=== PATIENT | male | born 1955 | race Hispanic/Latino ===

== ENCOUNTER 2019-07-24 11:55 | Inpatient (IN) | payer MEDICARE, OTHER ==
[2019-07-24] MEDS ORDERED: Lorazepam 2 MG/ML VIAL ONE (13:03)
[2019-07-24 13:14] LABS: #Eosinphils 0.1 thou/uL (0.0-0.7); #Lymphocytes 1.1 thou/uL (1.20-3.40); #Monocytes 0.7 thou/uL (0.11-0.59); #Neutrophils 15.5 thou/uL (1.40-6.50); %Basophils 0.1 % (0.0-1.0); %Eosinophils 0.3 % (0.0-10.0); %Lymphocytes 6.5 % (21.0-51.0); %Monocytes 3.9 % (0.0-10.0); %Neutrophils 89.1 % (42.0-75.0); Hemoglobin 13.1 g/dL (14.0-18.0); Mean Corpuscular HGB CONC 33.2 g/dL (32.0-36.0); Mean Corpuscular Hemoglobin 31.2 pg (27.0-31.0); Mean Corpuscular Volume 94.1 fL (78.0-98.0); Mean Platelet Volume 9.2 fL (7.4-10.4); Platelet Count 271 thou/uL (130-400); RBC Distribution Width 11.8 % (11.5-14.5); Red Blood Cell (RBC) Count 4.19 mill/uL (4.70-6.10); White Blood Cell (WBC) Count 17.4 thou/uL (4.8-10.8)
[2019-07-24 13:25] LABS: ALT (SGPT) 12 U/L (8-55); AST (SGOT) 12 U/L (5-34); Albumin 4.2 g/dL (3.4-4.8); Alkaline Phosphatase 120 U/L (40-110); Anion Gap 16 mmol/L (10-20); BUN (Urea Nitrogen) 22 mg/dL (8.4-25.7); Bilirubin, Total 0.5 mg/dL (0.2-1.2); CK (CPK) 91 U/L (30-200); Calc. Creatinine Clearance 0 mL/min (70-130); Calcium 9.7 mg/dL (7.8-10.44); Carbon Dioxide 26 mmol/L (23-31); Chloride 103 mmol/L (98-107); Estimated GFR-MDRD 71; Globulin 2.9 g/dL (2.4-3.5); Glucose 109 mg/dL (80-115); Potassium 4.3 mmol/L (3.5-5.1); Protein, Total 7.1 g/dL (5.8-8.1); Sodium 141 mmol/L (136-145)
[2019-07-24] MEDS ORDERED: FOSPHENYTOIN SODIUM IVPB SCH ×2 (13:30→16:15)
[2019-07-24] MEDS ORDERED: SODIUM CHLORIDE 0.9% IVPB SCH ×2 (13:30→16:15)
[2019-07-24 13:50] LABS: Bilirubin Negative (Negative); Blood, Urine Negative (Negative); Clarity Clear (Clear); Glucose, Urine (Dipstick) Greater than 1000 mg/dL (Negative); Leukocyte Negative Leu/uL (Negative); Nitrite Negative (Negative); Protein, Urine (Dipstick) 20 mg/dL (Neg-Trace); Urobilinogen Normal mg/dL (Less than 2)
--- NOTE | 2019-07-24 13:51 | CT ---
CT BRAIN WITHOUT CONTRAST: Date: 07/24/2019 HISTORY: Altered mental status. Weakness. Recent CVA. FINDINGS: No previous exams available for comparison. There is encephalomalacia likely due to right MCA infarction. There are changes of cortical atrophy a nd chronic small vessel ischemic disease. No evidence of acute infarct, hemorrhage, midline shift, or abnormal extra-axial fluid collections are seen. The bony calvarium is intact. There is mild mucosal disease in the paranasal sinuses. IMPRESSION: No CT evidence of acute intracranial process. POS: [facility]
--- NOTE | 2019-07-24 14:26 | RAD ---
PORTABLE CHEST; Date: 07/24/2019 HISTORY: Altered mental status. FINDINGS: Heart size is borderline. There are atherosclerotic changes of the aorta. Lungs are clear of infiltra kirsten. IMPRESSION: No active intrathoracic disease. POS: [facility]
[2019-07-24] MEDS ORDERED: Sodium Chloride 0.9% 1,000 ML IV SCH (15:53)
[2019-07-24 16:23] LABS: Lactic Acid 2.1 mmol/L (0.5-2.2)
[2019-07-24] MEDS ORDERED: Guaifenesin DM 100-10/5 ML UDCUP PO PRN (17:14)
[2019-07-24] MEDS ORDERED: Acetaminophen 325 MG TAB PO PRN (17:14)
[2019-07-24] MEDS ORDERED: Ondansetron ODT 4 MG TAB PO PRN (17:14)
[2019-07-24] MEDS ORDERED: Senokot S 8.6-50 MG TAB PO PRN (17:14)
[2019-07-24] MEDS ORDERED: Ondansetron PF 4 MG/2 ML Vial IVP PRN (17:14)
[2019-07-24] MEDS ORDERED: hydrALAZINE 20 MG/ML VIAL SLOW IVP PRN (17:14)
[2019-07-24] MEDS ORDERED: Acetaminophen 650 MG Suppository PR PRN (17:14)
[2019-07-24] MEDS ORDERED: Labetalol HCl 100 MG/20 ML VIAL SLOW IVP PRN (17:14)
[2019-07-24] MEDS ORDERED: Dextrose 50% Abboject 50 ML SYRINGE SLOW IVP PRN (17:18)
[2019-07-24] MEDS ORDERED: Dextrose 5% in Water 1,000 ML IV PRN (17:18)
[2019-07-24] MEDS ORDERED: HumaLOG 300 UNITS/3 ML VIAL SC PRN ×2 (17:18)
[2019-07-24] MEDS: Sodium Chloride 0.9% 1,000 ML IV SCH (17:41)
--- NOTE | 2019-07-24 19:10 | HP ---
PRIMARY CARE PHYSICIAN: Dr. Alberto. CHIEF COMPLAINT: Altered mental status. HISTORY OF PRESENT ILLNESS: This is a 63-year-old white male with a known history of diabetes mellitus type 2, insulin dependent; hypertension; hyperlipidemia; and obstructive sleep apnea; who developed a stroke in February of 2019. He was given tPA and was transported to [facility] in [place]. He had a recurrent stroke during the transport. The patient has had a prolonged course since then he has had significant left upper and lower extremity weakness, muscle spasms, and bilateral left homonymous field defects, visual field defects, and he has had some dysarthria and dysphagia. The patient was doing decently at the residential facility and then in the custodial with a single sided walker until about a month ago when he got significantly weaker and more unstable. He has not really been able to get up and stand for the last week. Then, the family noticed that he has had a decreased appetite over the last week at all, is not really wanting to eat it. He did have diarrhea earlier in the week about 3 to 4 times that resolved, and nausea and vomiting once yesterday. There had been some virus going around causing this at the custodial, but he was talkative and interactive with his family. Of note, he did discuss with his the day prior to admission that he was getting tired of his decline and lack of progress and that he did not want to be resuscitated should he have a heart attack or other severe illness. The patient spoke to his on the phone a couple of times this morning, but then they were notified at the custodial that he was no longer responsive. No specific instances of seizure noted in the custodial, but he was not responding to them. They brought him into the emergency room. There, he was noted to be alert when he arrived in the ER, but although pleasantly confused. CT of the brain at that time showed old prior stroke, but no acute findings. The patient then had a witnessed generalized seizure in the emergency room. This was self-limited, did not require any medication, and he woke up after about 15 minutes. He was loaded with fosphenytoin and given some IV fluids and then admitted to the hospital. The patient has been very groggy and sleepy ever since. He can talk, but it is hard to understand, has very slurred speech. reports that he has never had a seizure before. All history taken from the as the patient is difficult to understand and he is very sleepy and difficult to keep awake or ask complex questions too. PAST MEDICAL HISTORY: 1. Diabetes mellitus type 2, insulin dependent with a diabetic neuropathy. 2. Hypertension. 3. Hyperlipidemia. 4. Obstructive sleep apnea, on CPAP at night, which he has not been keeping on since his stroke. 5. Previous stroke, see HPI. 6. Left-sided hemiplegia and hemiparesis. 7. 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 However, states that he has ever had a history of clots in his legs. 8. Gastroesophageal reflux disease. PAST PSYCHIATRIC HISTORY: Depression and anxiety ever since his stroke. PAST SURGICAL HISTORY: Bilateral cataract surgery. SOCIAL HISTORY: No history of tobacco, alcohol, or illicit drug use. He is . He has been living in [facility] since being june when he was discharged from residential facility in [place]. FAMILY HISTORY: The patient is adopted. There are no known family medical problems. ALLERGIES: ERYTHROMYCIN CAUSES STOMACH CRAMPING. CURRENT MEDICATIONS: 1. Acetaminophen extended release 650 mg every 4 hours as needed for pain. 2. Amlodipine 10 mg daily. 3. Aspirin 81 mg daily. 4. Atorvastatin 40 mg daily. 5. Baclofen 5 mg three times a day. 6. Baclofen 15 mg at night. 7. Dulcolax suppository daily as needed for constipation. 8. Ergocalciferol 1.25 mg once a week. 9. Famotidine 20 mg twice a day. 10. Fluticasone nasal spray in both nostrils one time a day. 11. Gabapentin 100 mg in the morning and at lunch, and 300 mg at night. 12. Aluminum magnesium hydroxide with simethicone, give 30 mL by mouth every 6 hours as needed for heartburn. 13. Levemir 15 units in the morning and 10 units at night. 14. Lisinopril 30 mg daily. 15. Loratadine 10 mg daily as needed for allergies. 16. Melatonin 3 mg by mouth at night. 17. Metoprolol succinate 25 mg daily. 18. Novolin 7 units subcu twice a day with lunch and dinner only. 19. Sertraline 50 mg daily. 20. Metformin/empagliflozin 2 tablets by mouth one time a day. 21. Tadalafil 5 mg daily. 22. Tramadol as needed for pain. REVIEW OF SYSTEMS: Unable to obtain full review of systems secondary to the patient's dysarthria and somnolence. Pertinent review of systems have been obtained from the family. See HPI for complete list of positive symptoms. As far as the family knows, he has not had any fevers and no urinary changes. No recent falls that they know of. He has said that food is taste bad over the last week. He is not hungry. PHYSICAL EXAMINATION: VITAL SIGNS: Blood pressure 147/74, pulse 96, respirations 17, O2 saturations 95% on room air, temperature 98.8. GENERAL: This is a well-developed, well-nourished white male, who is somnolence , snoring gently, in no acute distress. HEENT: The patient is unable to open his eyes very well, though he can open them with a lot of stimulation. His pupils are bilaterally reactive to light and are not deviated. He is not able to see off to the left side with either eye. Oropharynx clear without lesions, erythema, or exudate. NECK: Supple. No lymphadenopathy. No thyroid nodules or enlargement. HEART: Regular rate and rhythm. No murmurs, rubs, or gallops. LUNGS: Clear to auscultation bilaterally. No wheezes, crackles, or rhonchi. ABDOMEN: Soft, nontender to palpation. Normoactive bowel sounds. No hepatosplenomegaly or other masses. EXTREMITIES: No clubbing, cyanosis, or edema. SKIN: No rashes or lesions noted. NEUROLOGIC: The patient has hyperreflexia in the left upper and lower extremities. He has no movement of his left upper extremity to command, but does have some tightening and movement in reaction to stimulation. He is able to move the left lower extremity mildly to command as full use of the right side of his body. PSYCHIATRIC: The patient is somnolent, is able to be aroused for short period of time, but goes right back to sleep. He is oriented to his name, to his location at [facility]. He initially thought it might be June of 2019, but then remembered that the year had passed by, does not know the date. LABORATORY DATA: White blood cell count 17,000 with 89% neutrophils, hemoglobin 13.1, hematocrit 39.5, platelet count 271. Complete metabolic panel is notable only for an alkaline phosphatase of 120. Rest was normal. His troponin was negative x1. His lactic acid was initially elevated at 3.3, came down to 2.1 after fluids. Urinalysis showed greater than a 1000 glucose and ketones were positive, but no evidence of infection. IMAGING STUDIES: CT of the brain done in the emergency room did show encephalomalacia likely due to right MCA infarction, changes of cortical atrophy and chronic small-vessel ischemic changes, but no evidence of acute infarction, hemorrhage, midline shift or abnormal extra-axial fluid collection seen. Chest x-ray; I did review the chest x-ray done in the emergency room along with the radiologist's report, does show borderline size heart, but clear lung montanez. No evidence of acute cardiopulmonary disease. ASSESSMENT: 1. New onset seizure activity. This is likely due to his previous or perhaps some recurrent recent strokes. The patient was loaded with fosphenytoin in the emergency room. We will start him on Keppra. I have spoken with Dr. Low and he will see him tomorrow. 2. Previous strokes with recent significant decline in functional status, concern for recurrent strokes. We will get an MRI to evaluate. 3. We will also consider advancing the patient's antithrombotic therapy to Aggrenox or aspirin or Plavix if he does show evidence of recurrent strokes on the 81 mg of aspirin daily. 4. Hypertension. The patient's blood pressure is decently controlled right now , we will resume home antihypertensives. 5. Diabetes mellitus type 2, insulin dependent. We will resume the patient's home insulin and put him on a diabetic diet with supplements. 6. Dysarthria and worsening slurred speech, concern for worsening of his dysphagia as well. We will have him on aspiration precautions and will have speech therapy evaluate him along with the rest of the stroke team. 7. Gastrointestinal prophylaxis and gastroesophageal reflux disease. We will continue the patient's Pepcid twice a day. 8. Deep venous thrombosis prophylaxis. We will put the patient on Lovenox daily subcu. 9. Code status. I did discuss this with the patient and the patient's , who is his medical power of civil litigation attorney. He is a do not attempt resuscitation. His ' s name is Abby Doyle. Job ID: [id number] MUNA
[2019-07-24 20:37] VITALS: BMI 25.1
[2019-07-24] MEDS ORDERED: levETIRAcetam 500 MG TAB PO SCH (21:00)
[2019-07-24] MEDS: Famotidine/PF 20 mg/2ml Vial SLOW IVP SCH (22:35)
[2019-07-24] MEDS: Insulin Glargine 10 UNITS in Pre-Filled Syringe SC SCH (22:43)
[2019-07-24] MEDS: Gabapentin 300 MG CAP PO SCH (22:44)
[2019-07-24] MEDS: Baclofen 10 MG TAB PO SCH (22:45)
[2019-07-24] MEDS: Atorvastatin Calcium 40 MG TAB PO SCH (22:45)
[2019-07-25 05:13] LABS: #Basophils 0.1 thou/uL (0.0-0.2); #Lymphocytes 1.8 thou/uL (1.20-3.40); #Monocytes 0.9 thou/uL (0.11-0.59); #Neutrophils 12.7 thou/uL (1.40-6.50); %Basophils 0.5 % (0.0-1.0); %Eosinophils 0.2 % (0.0-10.0); %Lymphocytes 11.3 % (21.0-51.0); %Monocytes 5.6 % (0.0-10.0); %Neutrophils 82.3 % (42.0-75.0); Hemoglobin 12.4 g/dL (14.0-18.0); Mean Corpuscular HGB CONC 32.7 g/dL (32.0-36.0); Mean Corpuscular Hemoglobin 30.7 pg (27.0-31.0); Mean Corpuscular Volume 93.9 fL (78.0-98.0); Mean Platelet Volume 9.7 fL (7.4-10.4); Platelet Count 272 thou/uL (130-400); Red Blood Cell (RBC) Count 4.02 mill/uL (4.70-6.10); White Blood Cell (WBC) Count 15.4 thou/uL (4.8-10.8)
[2019-07-25 05:39] LABS: Anion Gap 22 mmol/L (10-20); BUN (Urea Nitrogen) 17 mg/dL (8.4-25.7); Calc. Creatinine Clearance 90 mL/min (70-130); Calcium 9.2 mg/dL (7.8-10.44); Carbon Dioxide 21 mmol/L (23-31); Cardiac Risk 2.3 (Less than 4.5); Chloride 103 mmol/L (98-107); Cholesterol 68 mg/dl (< 200 Desired); Estimated GFR-MDRD 88; Glucose 71 mg/dL (80-115); HDL Cholesterol 30 mg/dL (>60 Neg Risk); LDL Cholesterol, Calculated 25 mg/dL; Potassium 4.5 mmol/L (3.5-5.1); Sodium 141 mmol/L (136-145); Triglycerides 64 mg/dL (Less than 150)
[2019-07-25] MEDS: Enoxaparin Sodium 40 MG/0.4 ML SYRINGE SC SCH (08:44)
[2019-07-25] MEDS: Famotidine/PF 20 mg/2ml Vial SLOW IVP SCH ×2 (08:44→21:49)
[2019-07-25] MEDS: Aspirin 300 MG Suppository PR SCH (08:45)
--- NOTE | 2019-07-25 09:47 | PDOC.HOSPP ---
- Subjective Encounter Date: 07/25/19 Encounter Time: 11:30 Subjective: Patient with nausea overnight, a couple episodes of vomiting. Was too agitated and fidgety to do MRI earlier. Will need sedation first. - Objective Vital Signs & Weight: Vital Signs (12 hours) Temp Pulse Resp BP Pulse Ox 07/25/19 07:22 98.6 F 102 H 16 110/53 L 96 07/25/19 03:50 98.7 F 93 18 117/59 L 94 L 07/24/19 23:52 98.3 F 88 18 113/68 95 Weight Weight 165 lb 6.4 oz Result Diagrams: 07/25/19 04:38 07/25/19 04:38 Additional Labs: Accuchecks 07/25/19 07/24/19 07/24/19 06:13 20:34 17:41 POC Glucose 83 96 104 Hospitalist ROS - Review of Systems ROS unobtainable: due to mental status Gastrointestinal: reports: nausea, vomiting - Medication Medications: Active Medications Generic Name Dose Route Start Last Admin Trade Name Freq PRN Reason Stop Dose Admin Aspirin 300 mg 07/25/19 09:00 07/25/19 08:[address] 300 mg DAILY ELISABETH Administration Atorvastatin Calcium 40 mg 07/24/19 21:00 07/24/19 22:45 Lipitor PO Not Given HS ELISABETH Baclofen 5 mg 07/24/19 21:00 07/24/19 22:45 Lioresal PO Not Given TID ELISABETH Enoxaparin Sodium 40 mg 07/25/19 09:00 07/25/19 08:44 Lovenox SC 40 mg 0900 ELISABETH Administration Famotidine 20 mg 07/24/19 21:00 07/25/19 08:44 Pepcid SLOW IVP 20 mg Q12HR ELISABETH Administration Gabapentin 300 mg 07/24/19 21:00 07/24/19 22:44 Neurontin PO Not Given HS ELISABETH Sodium Chloride 1,000 mls @ 50 mls/hr 07/24/19 17:15 07/24/19 17:41 Normal Saline 0.9% IV 1,000 mls .Q20H ELISABETH Administration Insulin Glargine 10 units/ 0.1 mls @ 0 mls/hr 07/24/19 21:00 07/24/19 22:43 Miscellaneous Medication SC Not Given HS ELISABETH Levetiracetam 500 mg/ Device 100 mls @ 200 mls/hr 07/25/19 09:00 07/25/19 08: 45 IVPB 100 mls BID ELISABETH Administration Ondansetron HCl 4 mg 07/24/19 17:14 07/25/19 07:10 Zofran IVP 4 mg Q6H PRN Administration Nausea/Vomiting - Exam General - other findings: sleepy, arousable to say a few words, doesn't open eyes Heart: RRR, no murmur, no gallops, no rubs Respiratory: CTAB, no wheezes, no rales, no ronchi Gastrointestinal: soft, non-tender, non-distended, normal bowel sounds Neurological - other findings: regular spasming of LLE Psychiatric: somnolent Hosp A/P (1) New onset seizure Code(s): R56.9 - UNSPECIFIED CONVULSIONS Status: Acute (2) History of multiple strokes Code(s): Z86.73 - PRSNL HX OF TIA (TIA), AND CEREB INFRC W/O RESID DEFICITS Status: Chronic (3) Hypertension Code(s): I10 - ESSENTIAL (PRIMARY) HYPERTENSION Status: Chronic Qualifiers: Hypertension type: essential hypertension Qualified Code(s): I10 - Essential (primary) hypertension (4) Diabetes mellitus, insulin dependent (IDDM), controlled Code(s): E11.9 - TYPE 2 DIABETES MELLITUS WITHOUT COMPLICATIONS; Z79.4 - CORRECTION (CURRENT) USE OF INSULIN Status: Chronic (5) Dysarthria Code(s): R47.1 - DYSARTHRIA AND ANARTHRIA Status: Acute Plan: chronic with recent worsening (6) GERD (gastroesophageal reflux disease) Code(s): K21.9 - GASTRO-ESOPHAGEAL REFLUX DISEASE WITHOUT ESOPHAGITIS Status: Chronic (7) CLARIBEL (obstructive sleep apnea) Code(s): G47.33 - OBSTRUCTIVE SLEEP APNEA (ADULT) (PEDIATRIC) Status: Chronic - Plan Neuro consult Started on Keppra MRI to rule out recurrent stroke Concern for possibility of infection, mild leukocytosis with no fever, just nausea/vomiting. UA neg. Check blood cultures. Possibly viral GE. Hold abx for now. Valium prior to retry MRI DVT prophylaxis: Lovenox
[2019-07-25] MEDS ORDERED: Bisacodyl 10 MG SUPP PR PRN (11:38)
[2019-07-25] MEDS ORDERED: traMADol HCl 50 MG TAB PO PRN (11:38)
[2019-07-25] MEDS: Amlodipine 10 MG TAB PO SCH (11:40)
[2019-07-25] MEDS: Gabapentin 100 MG CAP PO SCH ×2 (11:40→15:15)
[2019-07-25] MEDS: Baclofen 10 MG TAB PO SCH ×4 (11:40→22:54)
[2019-07-25] MEDS: Insulin Glargine 15 UNITS in Pre-Filled Syringe SC SCH (11:40)
[2019-07-25] MEDS ORDERED: Diazepam 10 MG/2 ML SYRINGE IVP PRN (11:43)
[2019-07-25] MEDS: Sodium Chloride 0.9% 1,000 ML IV SCH (14:37)
--- NOTE | 2019-07-25 16:55 | MRI ---
EXAM: MRI Brain WO Con PROVIDED CLINICAL HISTORY: Stroke COMPARISON: CT brain 07/24/2019 FINDINGS: The ventricular system is unchanged in size and morphology. Advanced chronic microvascular ischemic c hanges are seen involving the cerebral white matter. There is encephalomalacia in the posterior distribution of the right MCA compatible with prior infarction. Associated hemosiderin staining relat ed to prior hemorrhage in this region. Changes related to Wallerian degeneration seen involving the cerebral peduncle, ed and midbrain. There is no evidence for acute intracranial hemorrhage. There i s no evidence for restricted diffusion to suggest recent infarction. Appropriate flow voids are seen within the major intracranial vessels. The extracranial soft tissues and calvarial marrow signal demonstrate an unremarkable MR appearance. IMPRESSION: No evidence for an acute intracranial abnormality. Advanced chronic ischemic changes as described.
[2019-07-25] MEDS: Mometasone 100 MCG HFA INHALER INH SCH (19:27)
[2019-07-25] MEDS: Gabapentin 300 MG CAP PO SCH (22:47)
[2019-07-25] MEDS: Melatonin 3 MG TAB PO SCH (22:53)
[2019-07-25] MEDS: Atorvastatin Calcium 40 MG TAB PO SCH (22:53)
--- NOTE | 2019-07-25 23:05 | CON ---
DATE OF CONSULTATION: 07/25/2019 CONSULTING PHYSICIAN: Hospitalist Service. IMPRESSION: 1. Recurrent seizure activity secondary to his prior stroke. 2. History suggests a possible recurrent stroke around [place], which would suggest aspirin failure. PLAN: 1. Continue Keppra 500 mg twice daily. 2. Continue aspirin. 3. Add Plavix 75 mg daily. 4. Continue statin. 5. Patient can be transferred back to the assisted at your discretion. HISTORY OF PRESENT ILLNESS: Mr. Doyle is a 63-year-old man who has a history of hypertension, diabetes. He developed a stroke in February that resulted in a left hemiparesis. His daughter reports he had made some recovery and was able to ambulate again. He had some dysarthria, but was able to eat by mouth. He regained very little use of his left upper extremity. His family has noticed some episodes where he would have a blank staring appearance. He subsequently was witnessed to have seizure activity. He was seen in the emergency room yesterday and was loaded with Dilantin. He subsequently was changed over to Keppra. Further history suggests that he was making progress until around and reportedly had increased difficulty ambulating. He was planned to re-evaluate for further stroke damage, but this was not done in a timely fashion. He was evaluated in [facility] initially and currently is living in the [facility]. PAST MEDICAL HISTORY: 1. Hypertension. 2. Diabetes. ALLERGIES: ERYTHROMYCIN. SOCIAL HISTORY: Unremarkable. FAMILY HISTORY: Unremarkable. REVIEW OF SYSTEMS: Not obtainable at this time due to his lethargic state. PHYSICAL EXAMINATION: VITAL SIGNS: Blood pressure 145/65, pulse 106, respirations 16, temperature 98.3. HEENT: Cranium, normocephalic and atraumatic. NECK: No lymphadenopathy. EXTREMITIES: No cyanosis or edema. NEUROLOGIC: He is lethargic secondary to sedation. He has no gross facial asymmetry. No abnormal movements were seen. SUMMARY: This is a 63-year-old gentleman with a recent stroke and witnessed partial as well as generalized seizure activity. I agree with continuing anticonvulsant given the history that there was a neurologic deterioration in May. I would add Plavix for the next 6 months. I would be happy to follow in his care. Job ID: [id number]
[2019-07-25] MEDS: Insulin Glargine 10 UNITS in Pre-Filled Syringe SC SCH (23:06)
[2019-07-26] MEDS: Mometasone 100 MCG HFA INHALER INH SCH ×2 (07:05→18:37)
--- NOTE | 2019-07-26 09:32 | PDOC.HOSPP ---
- Subjective Encounter Date: 07/26/19 Encounter Time: 11:45 non-verbal Subjective: Patient very somnolent all today. Not able to swallow anything. Spoke with and daughter. They state that patient just a couple days before admission stated that he was tired of living like this, didn't want anything more done. They state he has been adamant that he never wanted a feeding tube. They would like to move to hospice. - Objective Vital Signs & Weight: Vital Signs (12 hours) Temp Pulse Resp BP Pulse Ox 07/26/19 07:53 97.9 F 101 H 16 145/77 H 98 07/26/19 04:16 98.3 F 101 H 16 120/63 98 07/26/19 00:00 98.9 F 97 16 131/65 97 Weight Admit Weight 165 lb 6.4 oz Weight 165 lb 6.4 oz I&O: 07/25/19 07/26/19 07/27/19 06:59 06:59 06:59 Intake Total 543 Balance 543 Result Diagrams: 07/25/19 04:38 07/25/19 04:38 Additional Labs: Accuchecks 07/26/19 07/25/19 07/25/19 05:48 20:29 17:14 POC Glucose 102 98 118 H 07/25/19 10:21 POC Glucose 81 Hospitalist ROS - Review of Systems ROS unobtainable: due to mental status - Medication Medications: Active Medications Generic Name Dose Route Start Last Admin Trade Name Freq PRN Reason Stop Dose Admin Amlodipine Besylate 10 mg 07/25/19 09:00 07/25/19 11:40 Norvasc PO Not Given DAILY ELISABETH Aspirin 300 mg 07/25/19 09:00 07/25/19 08:45 Aspirin [place] 300 mg DAILY ELISABETH Administration Atorvastatin Calcium 40 mg 07/24/19 21:00 07/25/19 22:53 Lipitor PO Not Given HS ELISABETH Baclofen 5 mg 07/24/19 21:00 07/25/19 22:54 Lioresal PO 5 mg TID ELISABETH Administration Baclofen 15 mg 07/25/19 21:00 07/25/19 22:54 Lioresal PO 15 mg HS ELISABETH Administration Enoxaparin Sodium 40 mg 07/25/19 09:00 07/25/19 08:44 Lovenox SC 40 mg 0900 ELISABETH Administration Famotidine 20 mg 07/24/19 21:00 07/25/19 21:49 Pepcid SLOW IVP 20 mg Q12HR ELISABETH Administration Gabapentin 100 mg 07/25/19 09:00 07/25/19 15:15 Neurontin PO 100 mg 0900,1500 ELISABETH Administration Gabapentin 300 mg 07/24/19 21:00 07/25/19 22:47 Neurontin PO Not Given HS ELISABETH Sodium Chloride 1,000 mls @ 50 mls/hr 07/24/19 17:15 07/25/19 14:37 Normal Saline 0.9% IV 1,000 mls .Q20H ELISABETH Administration Insulin Glargine 10 units/ 0.1 mls @ 0 mls/hr 07/24/19 21:00 07/25/19 23:06 Miscellaneous Medication SC Not Given HS ELISABETH Insulin Glargine 15 units/ 0.15 mls @ 0 mls/hr 07/25/19 09:00 07/25/19 11:40 Miscellaneous Medication SC Not Given QAM ELISABETH Levetiracetam 500 mg/ Device 100 mls @ 200 mls/hr 07/25/19 09:00 07/25/19 21: 49 IVPB 100 mls BID ELISABETH Administration Melatonin 3 mg 07/25/19 21:00 07/25/19 22:53 Melatonin PO Not Given HS ELISABETH Mometasone Furoate 1 puff 07/25/19 18:30 07/26/19 07:05 Asmanex Hfa 100 Mcg INH 1 puff BID-RT ELISABETH Administration Ondansetron HCl 4 mg 07/24/19 17:14 07/25/19 07:10 Zofran IVP 4 mg Q6H PRN Administration Nausea/Vomiting - Exam General - other findings: somnolent, minimally responsive Heart: RRR, no murmur, no gallops Respiratory: CTAB, no wheezes, no rales, no ronchi Gastrointestinal: soft, non-tender, non-distended Psychiatric: somnolent Psychiatric - other findings: not arousable, not following commands, not communicating Hosp A/P (1) New onset seizure Code(s): R56.9 - UNSPECIFIED CONVULSIONS Status: Acute (2) History of multiple strokes Code(s): Z86.73 - PRSNL HX OF TIA (TIA), AND CEREB INFRC W/O RESID DEFICITS Status: Chronic (3) Hypertension Code(s): I10 - ESSENTIAL (PRIMARY) HYPERTENSION Status: Chronic Qualifiers: Hypertension type: essential hypertension Qualified Code(s): I10 - Essential (primary) hypertension (4) Diabetes mellitus, insulin dependent (IDDM), controlled Code(s): E11.9 - TYPE 2 DIABETES MELLITUS WITHOUT COMPLICATIONS; Z79.4 - VISUAL LEAD (CURRENT) USE OF INSULIN Status: Chronic (5) Dysarthria Code(s): R47.1 - DYSARTHRIA AND ANARTHRIA Status: Acute (6) GERD (gastroesophageal reflux disease) Code(s): K21.9 - GASTRO-ESOPHAGEAL REFLUX DISEASE WITHOUT ESOPHAGITIS Status: Chronic (7) CLARIBEL (obstructive sleep apnea) Code(s): G47.33 - OBSTRUCTIVE SLEEP APNEA (ADULT) (PEDIATRIC) Status: Chronic - Plan Dr. Low consulted, appreciate recommendations Started on Keppra- not sure if valium from yesterday or Keppra might be contributing to somnolence. Will stop Keppra per family request MRI- no acute stroke Per family request will ask case management to look for a hospice group that can follow him back to [facility], then can d/c DVT prophylaxis: Lovenox
[2019-07-26] MEDS: Enoxaparin Sodium 40 MG/0.4 ML SYRINGE SC SCH (09:40)
[2019-07-26] MEDS: Famotidine/PF 20 mg/2ml Vial SLOW IVP SCH ×2 (09:49→20:44)
[2019-07-26] MEDS: Aspirin 300 MG Suppository PR SCH (09:49)
[2019-07-26] MEDS: Insulin Glargine 15 UNITS in Pre-Filled Syringe SC SCH (09:50)
[2019-07-26] MEDS: Clopidogrel Bisulfate 75 MG TAB PO SCH (10:20)
[2019-07-26] MEDS: Amlodipine 10 MG TAB PO SCH (10:20)
[2019-07-26] MEDS: Gabapentin 100 MG CAP PO SCH ×2 (10:20→14:47)
[2019-07-26] MEDS: Sodium Chloride 0.9% 1,000 ML IV SCH (10:20)
[2019-07-26] MEDS: Baclofen 10 MG TAB PO SCH ×4 (10:20→20:45)
[2019-07-26] MEDS ORDERED: Diazepam 10 MG/2 ML SYRINGE IVP PRN (11:59)
[2019-07-26] MEDS: Atorvastatin Calcium 40 MG TAB PO SCH (20:45)
[2019-07-26] MEDS: Insulin Glargine 10 UNITS in Pre-Filled Syringe SC SCH (20:45)
[2019-07-26] MEDS: Gabapentin 300 MG CAP PO SCH (20:45)
[2019-07-26] MEDS: Melatonin 3 MG TAB PO SCH (20:46)
[2019-07-26] MEDS ORDERED: Morphine 2 MG/ML SYRINGE SLOW IVP PRN (22:09)
[2019-07-26] MEDS ORDERED: Ketorolac Tromethamine 30 MG/ML VIAL IVP PRN (22:09)
[2019-07-27] MEDS: Sodium Chloride 0.9% 1,000 ML IV SCH ×2 (07:13→09:20)
[2019-07-27] MEDS: Mometasone 100 MCG HFA INHALER INH SCH ×2 (07:16→19:58)
--- NOTE | 2019-07-27 08:09 | PDOC.HOSPP ---
- Subjective Encounter Date: 07/27/19 Encounter Time: 10:20 Subjective: Patient a bit more arousable today, but still not following commands or opening eyes. Intermittently asking for water. Having hallucinations overnight and told family he was walking 15 miles into town. Complaining of pain in left leg, but spasms have stopped since started on Keppra. - Objective Vital Signs & Weight: Vital Signs (12 hours) Temp Pulse Resp BP Pulse Ox 07/27/19 07:00 98.1 F 108 H 15 159/88 H 97 07/27/19 03:44 98.9 F 119 H 18 144/91 H 98 07/27/19 00:00 98.6 F 106 H 16 129/71 98 Weight Admit Weight 165 lb 6.4 oz Weight 165 lb 6.4 oz I&O: 07/26/19 07/27/19 07/28/19 06:59 06:59 06:59 Intake Total 543 1360 Balance 543 1360 Result Diagrams: 07/25/19 04:38 07/25/19 04:38 Additional Labs: Accuchecks 07/27/19 07/26/19 07/26/19 06:17 20:13 16:53 POC Glucose 101 97 92 07/26/19 10:46 POC Glucose 89 Hospitalist ROS - Review of Systems ROS unobtainable: due to mental status - Medication Medications: Active Medications Generic Name Dose Route Start Last Admin Trade Name Freq PRN Reason Stop Dose Admin Amlodipine Besylate 10 mg 07/25/19 09:00 07/26/19 10:20 Norvasc PO Not Given DAILY [facility] Aspirin 300 mg 07/25/19 09:00 07/26/19 09:49 Aspirin HI 300 mg DAILY [facility] Administration Atorvastatin Calcium 40 mg 07/24/19 21:00 07/26/19 20:45 Lipitor PO Not Given HS ELISABETH Baclofen 5 mg 07/24/19 21:00 07/26/19 20:45 Lioresal PO Not Given TID ELISABETH Baclofen 15 mg 07/25/19 21:00 07/26/19 20:45 Lioresal PO Not Given HS ELISABETH Clopidogrel Bisulfate 75 mg 07/26/19 09:00 07/26/19 10:20 Plavix PO Not Given DAILY [facility] Enoxaparin Sodium 40 mg 07/25/19 09:00 07/26/19 09:40 Lovenox SC 40 mg 0900 ELISABETH Administration Famotidine 20 mg 07/24/19 21:00 07/26/19 20:44 Pepcid SLOW IVP 20 mg Q12HR ELISABETH Administration Gabapentin 100 mg 07/25/19 09:00 07/26/19 14:47 Neurontin PO Not Given 0900,1500 ELISABETH Gabapentin 300 mg 07/24/19 21:00 07/26/19 20:45 Neurontin PO Not Given HS ELISABETH Sodium Chloride 1,000 mls @ 50 mls/hr 07/24/19 17:15 07/27/19 07:13 Normal Saline 0.9% IV Not Given .Q20H ELISABETH Insulin Glargine 10 units/ 0.1 mls @ 0 mls/hr 07/24/19 21:00 07/26/19 20:45 Miscellaneous Medication SC Not Given HS ELISABETH Insulin Glargine 15 units/ 0.15 mls @ 0 mls/hr 07/25/19 09:00 07/26/19 09:50 Miscellaneous Medication SC Not Given QAM ELISABETH Levetiracetam 500 mg/ Device 100 mls @ 200 mls/hr 07/26/19 21:00 07/26/19 20: 44 IVPB 100 mls BID ELISABETH Administration Melatonin 3 mg 07/25/19 21:00 07/26/19 20:46 Melatonin PO Not Given HS [facility] Metoprolol Succinate 25 mg 07/26/19 09:00 07/26/19 10:20 Toprol Xl PO Not Given DAILY [facility] Mometasone Furoate 1 puff 07/25/19 18:30 07/27/19 07:16 Asmanex Hfa 100 Mcg INH Not Given BID-RT [facility] Ondansetron HCl 4 mg 07/24/19 17:14 07/25/19 07:10 Zofran IVP 4 mg Q6H PRN Administration Nausea/Vomiting Sertraline HCl 50 mg 07/26/19 09:00 07/26/19 10:20 Zoloft PO Not Given DAILY [facility] - Exam General - other findings: somnolent, mildly arrousable but confused and sparse words, not foll comman ENT: moist mucosa Heart: RRR, no murmur, no gallops Respiratory: CTAB, no wheezes, no rales, no ronchi Gastrointestinal: soft, non-tender, non-distended Psychiatric: somnolent Hosp A/P (1) New onset seizure Code(s): R56.9 - UNSPECIFIED CONVULSIONS Status: Acute (2) History of multiple strokes Code(s): Z86.73 - PRSNL HX OF TIA (TIA), AND CEREB INFRC W/O RESID DEFICITS Status: Chronic (3) Hypertension Code(s): I10 - ESSENTIAL (PRIMARY) HYPERTENSION Status: Chronic Qualifiers: Hypertension type: essential hypertension Qualified Code(s): I10 - Essential (primary) hypertension (4) Diabetes mellitus, insulin dependent (IDDM), controlled Code(s): E11.9 - TYPE 2 DIABETES MELLITUS WITHOUT COMPLICATIONS; Z79.4 - BELL CAPTAIN (CURRENT) USE OF INSULIN Status: Chronic (5) Dysarthria Code(s): R47.1 - DYSARTHRIA AND ANARTHRIA Status: Acute (6) GERD (gastroesophageal reflux disease) Code(s): K21.9 - GASTRO-ESOPHAGEAL REFLUX DISEASE WITHOUT ESOPHAGITIS Status: Chronic (7) CLARIBEL (obstructive sleep apnea) Code(s): G47.33 - OBSTRUCTIVE SLEEP APNEA (ADULT) (PEDIATRIC) Status: Chronic - Plan Dr. Low consulted, appreciate recommendations Started on Keppra Sedation yesterday appears to have been due to Valium, improved yesterday afternoon MRI- no acute stroke After arrival of son yesterday there was sharp family disagreement about if should do hospice. Son with untreated depression and demanding tube be placed against patient's previously expressed wishes. Hospice placement on hold for now. Palliative care consulted and plan for family meeting this afternoon with son. DVT prophylaxis: Lovenox
[2019-07-27] MEDS: Amlodipine 10 MG TAB PO SCH (09:16)
[2019-07-27] MEDS: Clopidogrel Bisulfate 75 MG TAB PO SCH (09:16)
[2019-07-27] MEDS: Gabapentin 100 MG CAP PO SCH ×2 (09:16→16:06)
[2019-07-27] MEDS: Baclofen 10 MG TAB PO SCH ×4 (09:16→20:45)
[2019-07-27] MEDS: Insulin Glargine 15 UNITS in Pre-Filled Syringe SC SCH (09:16)
[2019-07-27] MEDS: Famotidine/PF 20 mg/2ml Vial SLOW IVP SCH ×2 (09:17→20:39)
[2019-07-27] MEDS: Enoxaparin Sodium 40 MG/0.4 ML SYRINGE SC SCH (10:56)
[2019-07-27] MEDS: Aspirin 300 MG Suppository PR SCH (10:56)
--- NOTE | 2019-07-27 11:49 | PDOC.PALCO ---
Palliative Care Consult - Consult Details Requesting Physician: Dr Cheatham Reason for Consult: goals of care, assistance with communication prognosis/ disease, family support Family Members Present: Patient and daughter - Pertinent HPI 63 year old male who was living independently with his until Feb 2019 when he suffered a stroke, he was transported to [facility] in [place] and subsequently suffered another debilitating CVA. Patient transitioned to a skilled facility with pronounced left sided weakness, visual deficits, dysphagia. states patient has had poor rehabilitation the past month with increase in weakness and instability. reports she had talked to him the morning of 07/24/2019 and then the facility staff found him non responsive, transported to [facility] emergency room. Seizure activity in the emergency room. Admitted and patient has had continued dysphagia, lethargy, and weakness. - Pertinent PMH Diabetes II, HTN, HDL, Sleep Apnea, left sided hemiplegia, GERD - Social History Smoking Status: Never smoker Smoking: no tobacco exposure Alcohol Use: none Drug Use History: none Living Situation: , residential resident - Medications MAR Reviewed: Yes - Allergies Allergies/Adverse Reactions: Allergies Allergy/AdvReac Type Severity Reaction Status Date / Time erythromycin base Allergy Verified 07/24/19 20:54 - Subjective Sleeping in bed, lethargic, difficult to arouse. Not able to participate in ROS. - ROS Non Response: due to mental status - Objective Vital Signs: Vital Signs - Most Recent Temp Pulse Resp BP Pulse Ox 97.6 F 103 H 15 152/76 H 98 07/27/19 11:00 07/27/19 11:00 07/27/19 11:00 07/27/19 11:00 07/27/19 11:00 Palliative Performance Scale: 30 - Physical Exam Constitutional: ill appearing, mild distress HEENT: moist MMs, sclera anicteric Respiratory: no wheezing, unlabored breathing Cardiovascular: no rub, RRR Gastrointestinal: soft, non-tender, positive bowel sounds Musculoskeletal: no cyanosis, no clubbing, no edema Deviation from normal: deficits Skin: cap refill <2 seconds, no lesions, no rash - Problem List (1) Palliative care encounter Code(s): Z51.5 - ENCOUNTER FOR PALLIATIVE CARE Current Visit: Yes Status: Acute (2) Dysphagia Code(s): R13.10 - DYSPHAGIA, UNSPECIFIED Current Visit: Yes Status: Acute (3) Physical deconditioning Code(s): R53.81 - OTHER MALAISE Current Visit: Yes Status: Acute (4) Dysarthria Code(s): R47.1 - DYSARTHRIA AND ANARTHRIA Current Visit: Yes Status: Acute (5) New onset seizure Code(s): R56.9 - UNSPECIFIED CONVULSIONS Current Visit: Yes Status: Acute (6) History of multiple strokes Code(s): Z86.73 - PRSNL HX OF TIA (TIA), AND CEREB INFRC W/O RESID DEFICITS Current Visit: Yes Status: Chronic (7) Hypertension Code(s): I10 - ESSENTIAL (PRIMARY) HYPERTENSION Current Visit: Yes Status: Chronic Qualifiers: Hypertension type: essential hypertension Qualified Code(s): I10 - Essential (primary) hypertension - Plan/Recommendations Plan: Patient resting, arousable but restless, returned to sleep state. Live review with and daughter of patient. He has been greater than 32 years to his , and after his stroke in Feb they renewed their wedding vows. Daughter states that Mr Doyle made a "bucket list" and other than a trip to [place] he "checked' off all the things on his list. states that Mr Vivek was adamant in relation to allowing him to have a natural and did not want extreme or excessive measures. The and daughter are concerned in relation to the son and his lack of grasping disease trajectory and goals of care in line with the patients known expressed wishes. Family meeting to be arranged to discuss with the patients son disease trajectory/goals of care inline with patient know wishes. *Family meeting at 3pm 07/27/[address] Cheatham Additional information from family meeting. Met with patient , daughter and [id number]. Father Flako also present for part of family discussion, providing spiritual support and care. Patient is not having intake, and as per speech has increased dysphagia. Family states patient would not desire PEG. Has decided to seek hospice care for comfort for patient. Choice letter obtained, communicated with speech, Dr Cheatham and Ludmila VIERA. [120] minutes spent on this encounter with >50% of the time in counseling and coordination of care. Thank you for this very appropriate consult.
[2019-07-27] MEDS ORDERED: Lorazepam 2 MG/ML VIAL SLOW IVP PRN (14:38)
[2019-07-27] MEDS: Gabapentin 300 MG CAP PO SCH (20:45)
[2019-07-27] MEDS: Atorvastatin Calcium 40 MG TAB PO SCH (20:45)
[2019-07-27] MEDS: Insulin Glargine 10 UNITS in Pre-Filled Syringe SC SCH (20:46)
[2019-07-27] MEDS: Melatonin 3 MG TAB PO SCH (20:46)
[2019-07-28] MEDS: Sodium Chloride 0.9% 1,000 ML IV SCH (05:46)
[2019-07-28] MEDS: Mometasone 100 MCG HFA INHALER INH SCH (07:48)
[2019-07-28] MEDS: Baclofen 10 MG TAB PO SCH ×2 (09:04→15:58)
[2019-07-28] MEDS: Amlodipine 10 MG TAB PO SCH (09:04)
[2019-07-28] MEDS: Clopidogrel Bisulfate 75 MG TAB PO SCH (09:04)
[2019-07-28] MEDS: Gabapentin 100 MG CAP PO SCH ×2 (09:04→15:58)
[2019-07-28] MEDS: Insulin Glargine 15 UNITS in Pre-Filled Syringe SC SCH (09:05)
--- NOTE | 2019-07-28 10:47 | PDOC.HOSPP ---
- Subjective Encounter Date: 07/28/19 (f/u seizure) Encounter Time: 10:43 Subjective: No overnight events. Pt noted to be choking with ice chips. no pain noted. pt asking to get out of bed and go walking. - Objective Vital Signs & Weight: Vital Signs (12 hours) Temp Pulse Resp BP Pulse Ox 07/28/19 09:04 114 H 07/28/19 07:31 97.9 F 114 H 16 160/94 H 98 07/28/19 04:00 98.6 F 111 H 20 138/84 96 07/27/19 23:00 97.2 F L 114 H 24 H 150/91 H 96 Weight Admit Weight 165 lb 6.4 oz Weight 165 lb 6.4 oz I&O: 07/27/19 07/28/19 07/29/19 06:59 06:59 06:59 Intake Total 1360 1279 Balance 1360 1279 Result Diagrams: 07/25/19 04:38 07/25/19 04:38 Additional Labs: Accuchecks 07/28/19 07/27/19 07/27/19 06:21 20:37 17:07 POC Glucose 119 H 127 H 123 H 07/27/19 10:49 POC Glucose 117 H EKG Reviewed by me: Yes (tele - sinus 100-110's) Hospitalist ROS - Medication Medications: Active Medications Generic Name Dose Route Start Last Admin Trade Name Freq PRN Reason Stop Dose Admin Acetaminophen 650 mg 07/24/19 17:14 07/27/19 10:56 Tylenol RI 650 mg Q4H PRN Administration Headache/Fever/Mild Pain (1-3) Amlodipine Besylate 10 mg 07/25/19 09:00 07/28/19 09:04 Norvasc PO Not Given DAILY [facility] Aspirin 300 mg 07/25/19 09:00 07/27/19 10:56 Aspirin RI 300 mg DAILY [facility] Administration Atorvastatin Calcium 40 mg 07/24/19 21:00 07/27/19 20:45 Lipitor PO Not Given HS ELISABETH Baclofen 5 mg 07/24/19 21:00 07/28/19 09:04 Lioresal PO Not Given TID ELISABETH Baclofen 15 mg 07/25/19 21:00 07/27/19 20:45 Lioresal PO Not Given HS ELISABETH Clopidogrel Bisulfate 75 mg 07/26/19 09:00 07/28/19 09:04 Plavix PO Not Given DAILY [facility] Enoxaparin Sodium 40 mg 07/25/19 09:00 07/27/19 10:56 Lovenox SC 40 mg 0900 ELISABETH Administration Gabapentin 100 mg 07/25/19 09:00 07/28/19 09:04 Neurontin PO Not Given 0900,1500 ELISABETH Gabapentin 300 mg 07/24/19 21:00 07/27/19 20:45 Neurontin PO Not Given HS ELISABETH Sodium Chloride 1,000 mls @ 50 mls/hr 07/24/19 17:15 07/28/19 05:46 Normal Saline 0.9% IV 1,000 mls .Q20H EILSABETH Administration Levetiracetam 500 mg/ Device 100 mls @ 200 mls/hr 07/26/19 21:00 07/28/19 09: 05 IVPB 100 mls BID ELISABETH Administration Melatonin 3 mg 07/25/19 21:00 07/27/19 20:46 Melatonin PO Not Given HS [facility]ETH Metoprolol Succinate 25 mg 07/26/19 09:00 07/28/19 09:05 Toprol Xl PO Not Given DAILY [facility] Mometasone Furoate 1 puff 07/25/19 18:30 07/28/19 07:48 Asmanex Hfa 100 Mcg INH 1 puff BID-RT [facility]ISABETH Administration Ondansetron HCl 4 mg 07/24/19 17:14 07/25/19 07:10 Zofran IVP 4 mg Q6H PRN Administration Nausea/Vomiting Sertraline HCl 50 mg 07/26/19 09:00 07/28/19 09:05 Zoloft PO Not Given DAILY [facility] - Exam Heart: RRR, no murmur Respiratory: CTAB, no wheezes Gastrointestinal: soft, non-tender, non-distended, normal bowel sounds Extremities: no cyanosis, no clubbing, no edema Hosp A/P (1) Dysarthria Code(s): R47.1 - DYSARTHRIA AND ANARTHRIA Status: Acute (2) Dysphagia Code(s): R13.10 - DYSPHAGIA, UNSPECIFIED Status: Acute (3) New onset seizure Code(s): R56.9 - UNSPECIFIED CONVULSIONS Status: Acute (4) Diabetes mellitus, insulin dependent (IDDM), controlled Code(s): E11.9 - TYPE 2 DIABETES MELLITUS WITHOUT COMPLICATIONS; Z79.4 - DETENTION (CURRENT) USE OF INSULIN Status: Chronic (5) GERD (gastroesophageal reflux disease) Code(s): K21.9 - GASTRO-ESOPHAGEAL REFLUX DISEASE WITHOUT ESOPHAGITIS Status: Chronic (6) History of multiple strokes Code(s): Z86.73 - PRSNL HX OF TIA (TIA), AND CEREB INFRC W/O RESID DEFICITS Status: Chronic (7) Hypertension Code(s): I10 - ESSENTIAL (PRIMARY) HYPERTENSION Status: Chronic Qualifiers: Hypertension type: essential hypertension Qualified Code(s): I10 - Essential (primary) hypertension (8) CLARIBEL (obstructive sleep apnea) Code(s): G47.33 - OBSTRUCTIVE SLEEP APNEA (ADULT) (PEDIATRIC) Status: Chronic - Plan Hx of stroke, now with seizure and further decline including dysphagia and cannot safely swallow. - reviewed with patient's - she desires hospice back at facility in [facility] to inquire Will d/c IVF and IV meds continue current meds as ordered - oral if able to swallow tx pain/any other needs for comfort care dvt prophy - scd's gi prophy - not indicated code status DNAR Transfer with plan for hospice when this is arranged at [facility] No questions or further needs at end of conversation with patient's
[2019-07-28] MEDS: Famotidine/PF 20 mg/2ml Vial SLOW IVP SCH (10:59)
[2019-07-28] MEDS: Enoxaparin Sodium 40 MG/0.4 ML SYRINGE SC SCH (11:18)
[2019-07-28] MEDS: Aspirin 300 MG Suppository PR SCH (11:18)
--- NOTE | 2019-07-28 15:15 | PQF ---
TERENCE BOSE B[place] REYNA [id number] [facility] [place]-215 [id number] CLINICAL DOCUMENTATION IMPROVEMENT CLARIFICATION FORM: ICD-10 Updated PLEASE DO AN ADDENDUM TO THE PROGRESS NOTE WITH ANY DOCUMENTATION UPDATES OR ADDITIONS AND CARRY THROUGH TO DC SUMMARY. THANK YOU. DATE: 07/28/2019 ATTN:DR. Robert PEREIRA Please exercise your independent, professional judgment in responding to the clarification form. Clinical indicators are provided on the bottom of this form for your review. Please check appropriate box(s): [ ] Encephalopathy: Type: [ ] Acute [ ] Subacute [ ] Chronic Etiology: [ ] Hypertensive [ ] Metabolic [ ] Toxic [ ] Hepatic with Coma [ ] Hepatic w/o Coma [ ] Hypoxic [ ] Septic [ ] Wernickes [ ] Drug induced: [ ] Unspecified [ ] in the setting of underlying dementia [ ] Other (please specify) [ ]Transient Alteration of Awareness [ XX ] Other diagnosis __Cognitive decline secondary to seizure [ ] Unable to determine In addition, please specify: Present on Admission (POA): [ ] Yes [ ] No [ ] Unable to determine For continuity of documentation, please document condition throughout progress notes and discharge summary. Thank You. CLINICAL INDICATORS - SIGNS / SYMPTOMS / LABS / RESULTS AND LOCATION IN EMR 07/24 ED REPORT: PT FOUND UNRESPONSIVE AT [facility] PT WAS ONLY RESPONSIVE TO PAINFUL STIMULI. ED PHYSICIAN FINAL DX: SEIZURE, GENERALIZED WEAKNESS 07/24 H&P (EMETERIO) CHIEF COMPLAINT : ALTERED MENTAL STATUS, PT WAS BROUGHT TO ER, THERE, HE WAS NOTED TO BE ALERTED WHEN HE ARRIVED IN THE ER BUT PLEASANTLY CONFUSED. 07/25 PN (EMETERIO) WAS WAY TO AGITATED AND FIDGETY TO DO MRI EARLIER. 07/26 PN (EMETERIO) PATIENT VERY SOMNOLENT ALL TODAY. NOT ABLE TO SWALLOW ANYTHING. 07/27 PN (EMETERIO) PATIENT A BIT MORE AROUSABLE TODAY, BUT STILL NOT FOLLOWING COMMANDS OR OPENING EYES. HAVING HALLUCINATIONS OVERNIGHT. RISK: NEW ONSET SEIZURE, HX OF PREVIOUS STROKE (H&P/ EMETERIO) 07/24 TREATMENT NEUROLOGY CONSULT (MARAIST/07/25) NS IV FLUIDS (07/24-PRESENT) THANK YOU! SHARMIN (This form is maintained as a part of the permanent medical record) 2014 [employer] All Rights Reserved TRAE [phone] MTDShira
[2019-07-28 15:33] VITALS: BP 161/92; TEMP 98.3
[2019-07-28] MEDS ORDERED: levETIRAcetam 500 MG TAB PO SCH (21:00)
--- NOTE | 2019-07-29 02:38 | DIS ---
DATE OF ADMISSION: 07/24/2019 DATE OF DISCHARGE: 07/28/2019 DISCHARGE DISPOSITION: [facility] in [place] with hospice care. MEDICATIONS: Medications are reconciled at discharge. Essentially all home/ prior medications have been discontinued due to the patient unable to swallow or take medication except for the following; 1. Rectal Tylenol 650 mg every 4 hours as needed for pain. 2. Flovent diskus one inhalation daily. New medications are; 1. Ondansetron 4 mg ODT every 6 hours as needed for nausea. 2. Ativan 1 mg IM q.4 hours p.r.n. for seizure. 3. DuoNebs 4 times a day as needed for difficulty breathing. CONSULTANTS: 1. Dr. Low of Neurology. 2. Annette Hernández of Palliative Care. FINAL DIAGNOSES: 1. New onset seizure in the context of prior stroke with overall decline in function. 2. History of stroke. 3. Dysphagia secondary to above. SECONDARY DIAGNOSES: 1. Hypertension. 2. Diabetes mellitus. 3. Dysarthria. 4. Gastroesophageal reflux disease. 5. Obstructive sleep apnea. HISTORY OF PRESENT ILLNESS: Mr. Doyle is a 63-year-old male, who experienced a stroke back in February 2019, who has had a prolonged course since then with both upper and lower extremity weakness, muscle spasms, and visual field defects. He has also had some dysarthria and dysphagia. He was in a nursing facility, he was found to be unresponsive and brought to the emergency room. In the emergency room, he had a witnessed generalized seizure, was loaded with fosphenytoin and hospitalist called for admission. Please see history and physical for full details. HOSPITAL COURSE: The patient was continued on IV Keppra here. He underwent a CT of the brain, which was negative for any acute process, it does show chronic ischemic changes and encephalomalacia in the posterior distribution of the right MCA compatible with prior infarction. Dr. Low of Neurology consulted on the patient, who recommended continuing aspirin, adding Plavix, continuing a statin and continuing Keppra at 500 mg twice daily. Dysphagia has been a problem during this admission. The patient has not been felt safe to swallow, and an ad-kim with aspiration precautions diet is recommended by Speech Therapy. They recommended pureed diet, extra gravy or liquids, and thickened liquids as well. In discussion between Palliative Care and the patient's , he would not want to have a PEG tube placement. For this reason, the decision was made for hospice care. The patient was evaluated by the Inpatient Hospice Facility and does not meet criteria. However, [facility] can provide services out at [facility] in [place], where the patient has been residing. As the patient is not safe to swallow medications, essentially all medications have been discontinued. He has not been on them while here. He is tachycardic into the 110s, hypertensive anywhere from the 140s to 160s and tolerating both of these. With the plan for hospice care, the patient was already a DNAR status, the patient does meet criteria for discharge to the facility today. As noted above, I am essentially stopping all medications except for anything that can be oral dissolving, used rectally, or is an inhaled medication. Hospice to assume all medications at the facility. PHYSICAL EXAMINATION: On day of discharge, please see the note on the chart. WHITTAKER FINDINGS AND TEST RESULTS: CBC on July 25, 15.4, 12.4, 37.8, 272. Chemistry, last checked on July 25, 141, 4.5, 103, 21, 17, 0.87, 71. Triglycerides 64, cholesterol 68, LDL 25, HDL 30. AST 12, ALT 12, T bilirubin 0.5, alkaline phosphatase 120, total protein 7.1, albumin 4.2. Urinalysis showed greater than 1000 glucose, 10 ketones. Blood culture I shows coag-negative staph, the other shows no growth at [address] of the brain without contrast is negative for an acute intracranial process. This was performed on July 24. MRI of the brain without contrast shows no evidence for any acute intracranial abnormality, advanced chronic ischemic changes, encephalomalacia in the posterior distribution of the right MCA compatible with prior infarction. Chest x-ray performed on July 24, no active intrathoracic disease. DIET: With aspiration precautions, ad-kim, pureed, extra gravy. CODE STATUS: Do not attempt resuscitation. DISCHARGE DISPOSITION: [facility] in [place]. TIME SPENT: Total time coordinating discharge is 35 minutes. Job ID: [id number] MTDD
[2019-07-31] MEDS ORDERED: Ergocalciferol 1.25 MG(50,000 UNITS) CAP PO SCH (09:00)
== END 2019-07-28 17:12 | DRG 101 ==
LOC: ERS 11:55 → 2SE 15:16
PROVIDERS: ADMIT Family Medicine; ATTEND Emergency Medicine
DX: R56.9 Unspecified convulsions (principal); I69.954 Hemiplegia and hemiparesis following unspecified cerebrovascular disease affecting left non-dominant side; K21.9 Gastro-esophageal reflux disease without esophagitis; E11.9 Type 2 diabetes mellitus without complications; I10 Essential (primary) hypertension; E78.5 Hyperlipidemia, unspecified; G47.33 Obstructive sleep apnea (adult) (pediatric); Z66 Do not resuscitate; Z51.5 Encounter for palliative care; R47.1 Dysarthria and anarthria; I69.991 Dysphagia following unspecified cerebrovascular disease; Z98.42 Cataract extraction status, left eye; Z98.41 Cataract extraction status, right eye; Z88.1 Allergy status to other antibiotic agents; Z79.4 Long term (current) use of insulin
CPT/HCPCS: 36415; 36416; 70450; 70551; 71045; 80048; 80053; 80061; 81003; 82550; 83605; 84484; 85025; 87040; 87149; 93005; 96361; 96365; J1650; J1815; J1953; J2060; J2405; J3360; Q2009; S0028